=== PATIENT | female | born 1980 | race Caucasian/White ===

== ENCOUNTER 2017-08-26 01:09 | Emergency (ER) | payer BC, OTHER ==
[~2017-08-26] VITALS: Ht 167.6 cm; Wt 72.6 kg
[~2017-08-26 01:09] MED LIST: AMOX500 PO; ASPIRIN; ESCI10; HYDACE10B PO; HYDACE5 PO; IBUP400 PO; IBUPROFEN; NAPR500 PO; PENVK500 PO; RXHYDACE PO
[2017-08-26 02:30] LABS: Calcium, Ionized (POC) 1.31 mmol/L (1.10-1.46); Chloride (POC) 105 mmol/L (98-108); Creatinine (POC) 0.7 mg/dL (0.6-1.0); Glucose (ISTAT POC) 100 mg/dL (70-99); Hemoglobin (POC) 12.9 g/dL (12.0-16.0); Potassium (POC) 3.4 mmol/L (3.5-5.5); Sodium (POC) 140 mmol/L (135-148); Total CO2 (POC) 23 mmol/L (21-32)
[2018-05-29] MEDS ORDERED: TRAZ100 PO (14:22)
[2018-05-29] MEDS ORDERED: DESV50 PO (14:22)
[2018-05-31] MEDS ORDERED: HYDR1TAB94 PO (10:31)
== END 2017-08-26 03:15 | disposition home or self-care (01) ==
LOC: ER 01:09
PROVIDERS: Emergency Medicine
DX: R11.2 Nausea with vomiting, unspecified (principal); F41.0 Panic disorder [episodic paroxysmal anxiety]; R55 Syncope and collapse; Z79.2 Long term (current) use of antibiotics; Z79.891 Long term (current) use of opiate analgesic
CPT/HCPCS: 36415; 80047; 85014; 93005; 93010; 99283

== ENCOUNTER → 2018-01-05 | Outpatient (CLI) | payer BC ==
[2018-01-05 08:39] LABS: BASOPHILS ABSOLUTE AUTO 0.08 K/mm3 (0.00-0.23); BASOPHILS PERCENT AUTO 1 % (0-2); EOSINOPHILS ABSOLUTE AUTO 0.11 K/mm3 (0.00-0.68); EOSINOPHILS PERCENT AUTO 1 % (0-6); Hemoglobin 14.8 g/dL (11.5-16.0); IMMATURE GRAN ABSOLUTE AUTO 0.04 K/mm3 (0.00-0.10); IMMATURE GRAN PERCENT AUTO 0 % (0-1); LYMPHOCYTES ABSOLUTE AUTO 2.05 K/mm3 (0.84-5.20); LYMPHOCYTES PERCENT AUTO 22 % (21-46); MONOCYTES PERCENT AUTO 5 % (4-13); Mean Corpuscular HGB 29.1 pg (26.0-34.0); Mean Corpuscular HGB Conc 34.4 g/dL (31.5-36.5); Mean Corpuscular Volume 85 fL (80-100); NEUTROPHILS PERCENT AUTO 70 % (41-73); Platelet Count 283 K/mm3 (150-400); RDW Coefficient Variation 12.1 % (11.7-14.2); RDW Standard Deviation 36.5 fL (35.1-46.3); Red Blood Cell Count 5.09 M/mm3 (3.80-5.20); White Blood Cell Count 9.28 K/mm3 (4.00-11.30)
[2018-01-05 08:49] LABS: Anion Gap 10 mmol/L (6-16); Blood Urea Nitrogen 13 mg/dL (8-24); Bun/Creatinine Ratio 16.3 (12.0-20.0); CO2, Blood 25 mmol/L (21-32); Calcium, Blood 10.3 mg/dL (8.5-10.1); Chloride, Blood 104 mmol/L (98-108); Glomerular Filtration Rate >60 (60-); Glucose, Blood 109 mg/dL (70-99); Potassium, Blood 4.2 mmol/L (3.5-5.5); Sodium, Blood 139 mmol/L (136-145)
== END ==
LOC: LAB SHORT 08:35 → LAB EV 08:35
PROVIDERS: Physician Assistant Surgical
DX: R00.2 Palpitations (principal)
CPT/HCPCS: 80048; 85025

== ENCOUNTER → 2020-05-08 | Outpatient (CLI) | payer BC ==
[~2020-05-08] MED LIST changes: +DESV50 PO; +HYDR1TAB94 PO; +TRAZ100 PO
== END | disposition home or self-care (01) ==
LOC: LAB SHORT 17:42 → LAB EV 17:42
DX: J02.9 Acute pharyngitis, unspecified (principal)
CPT/HCPCS: 87081; 87147

== ENCOUNTER 2021-07-30 11:31 | Emergency (ER) | payer OTHER ==
[~2021-07-30] VITALS: Ht 167.6 cm; Wt 81.7 kg
[2021-07-30] MEDS ORDERED: Pristiq100 MG PO (12:02)
== END 2021-07-30 12:15 | disposition home or self-care (01) ==
LOC: ER 11:31
DX: Z76.0 Encounter for issue of repeat prescription (principal); F17.200 Nicotine dependence, unspecified, uncomplicated
CPT/HCPCS: 99281; A9270

== ENCOUNTER 2023-06-24 09:46 | Emergency (ER) | payer SELFPAY ==
[~2023-06-24] VITALS: Ht 167.6 cm; Wt 90.7 kg
[~2023-06-24 09:46] MED LIST changes: +Pristiq100 MG PO
[2023-06-24 10:28] VITALS: BP 173/117
[2023-06-24] MEDS ORDERED: DESV50 PO (10:32)
== END 2023-06-24 10:36 | disposition home or self-care (01) ==
LOC: ER 09:46
DX: Z76.0 Encounter for issue of repeat prescription (principal); F17.200 Nicotine dependence, unspecified, uncomplicated; Z79.899 Other long term (current) drug therapy
CPT/HCPCS: 99281